=== PATIENT | female | born 1950 | race Caucasian/White ===

== ENCOUNTER 2016-10-01 11:06 | Inpatient (IN) | payer OTHER ==
[~2016-10-01 11:06] MED LIST: ALENDRONATE SOD70 MG PO; ASPIRIN CHEWABL81 MG PO; CERTAGEN1 EACH PO; FEOSOL325 MG PO; KLONOPIN0.5 MG PO; LEXAPRO 10MG TA10 MG PO; MYRBETRIQ50 MG PO; OMEPRAZOLE40 MG PO; SILVADENE20 G1 TOP; SINGULAIR10 MG PO; VICODIN 10/3251 EACH PO; VITAMIN B-121000 MC1 PO; VITAMIN D1000 UNI1 PO; VITAMIN E200 UNI1 PO; XARELTO10 MG PO
[2016-10-01 14:49] LABS: BILIRUBIN NEGATIVE (NEGATIVE); BLOOD TRACE-INTACT Ery/uL (NEGATIVE); CLARITY CLEAR (CLEAR); COLOR YELLOW (YELLOW); GLUCOSE (U) NORMAL (NORMAL); KETONE (U) NEGATIVE (NEGATIVE); LEUKOCYTES NEGATIVE Leu/uL (NEGATIVE); NITRITE NEGATIVE (NEGATIVE); PROTEIN NEGATIVE (NEGATIVE); SPECIFIC GRAVITY <=1.005 (1.001-1.030); UROBILINOGEN 0.2 mg/dL (0.2-1.0); pH 6.5 (5.0-9.0)
[2016-10-01 15:12] LABS: BASOPHIL 0.4 % (0-2); EOSINOPHIL 0.9 % (0-7); HCT 35.8 % (37.0-47.0); HGB 12.7 g/dl (12.5-16.0); LYMPHOCYTE 10.7 % (15-48); MCH 32.6 pg (25.0-31.0); MCHC 35.5 g/dL (32.0-36.0); MONOCYTE 8.3 % (0-12); MPV 7.5 fL (6.0-9.5); NEUTROPHIL 79.7 % (41-80); PLT 849 K/uL (150-400); RBC 3.89 M/uL (4.20-5.40); RDW 13.3 % (11.5-14.0); WBC 16.3 K/uL (4.0-10.5)
[2016-10-01 15:20] LABS: INR 0.91 (0.9-1.2); PROTHROMBIN TIME 11.9 SECONDS (11.7-14.0); PTT 32.6 SECONDS (23.2-31.4)
[2016-10-01 15:31] LABS: ALBUMIN 3.8 g/dL (3.4-4.8); BILIRUBIN - TOTAL 0.4 mg/dL (0.1-1.0); CREATININE 0.4 mg/dL (0.5-1.0); GLOBULIN (CALCULATION) 4.1 g/dL (2.2-4.2); TOTAL PROTEIN 7.9 g/dL (6.4-8.3)
[2016-10-02 17:01] LABS: CREATININE 0.4 mg/dL (0.5-1.0); POTASSIUM 3.9 mmol/L (3.5-5.1)
[2016-10-03 06:31] LABS: HCT 29.5 % (37.0-47.0); HGB 10.1 g/dl (12.5-16.0); MCH 32.5 pg (25.0-31.0); MCHC 34.2 g/dL (32.0-36.0); MCV 94.9 fL (78.0-100.0); MPV 7.4 fL (6.0-9.5); RBC 3.11 M/uL (4.20-5.40); RDW 13.7 % (11.5-14.0); WBC 14.2 K/uL (4.0-10.5)
[2016-10-03 06:53] LABS: CREATININE 0.3 mg/dL (0.5-1.0); POTASSIUM 3.6 mmol/L (3.5-5.1)
[2016-10-04 05:37] LABS: BASOPHIL 0.1 % (0-2); EOSINOPHIL 2.6 % (0-7); HCT 31.2 % (37.0-47.0); HGB 10.6 g/dl (12.5-16.0); MCH 32.5 pg (25.0-31.0); MCV 95.7 fL (78.0-100.0); MONOCYTE 8.1 % (0-12); MPV 7.3 fL (6.0-9.5); NEUTROPHIL 79.2 % (41-80); PLT 729 K/uL (150-400); RBC 3.26 M/uL (4.20-5.40); RDW 13.9 % (11.5-14.0)
[2016-10-04 05:39] LABS: WBC 15.4 K/uL (4.0-10.5)
[2016-10-04 05:59] LABS: CREATININE 0.3 mg/dL (0.5-1.0)
[2016-10-05 05:06] LABS: BASOPHIL 0.1 % (0-2); HCT 21.8 % (37.0-47.0); LYMPHOCYTE 9.7 % (15-48); MCH 32.3 pg (25.0-31.0); MCHC 33.5 g/dL (32.0-36.0); MCV 96.5 fL (78.0-100.0); MONOCYTE 8.3 % (0-12); MPV 7.8 fL (6.0-9.5); NEUTROPHIL 79.9 % (41-80); PLT 633 K/uL (150-400); RBC 2.26 M/uL (4.20-5.40); RDW 13.4 % (11.5-14.0); WBC 14.3 K/uL (4.0-10.5)
[2016-10-05 05:22] LABS: HGB 7.3 g/dl (12.5-16.0)
[2016-10-05 05:28] LABS: CREATININE 0.5 mg/dL (0.5-1.0); POTASSIUM 4.4 mmol/L (3.5-5.1)
[2016-10-05 18:26] LABS: HCT 26.8 % (37.0-47.0); MCHC 33.6 g/dL (32.0-36.0); MCV 95.4 fL (78.0-100.0); MPV 7.6 fL (6.0-9.5); RBC 2.81 M/uL (4.20-5.40); RDW 13.5 % (11.5-14.0); WBC 13.3 K/uL (4.0-10.5)
[2016-10-06 04:28] LABS: BASOPHIL 0.1 % (0-2); EOSINOPHIL 0.7 % (0-7); HCT 24.7 % (37.0-47.0); HGB 8.6 g/dl (12.5-16.0); LYMPHOCYTE 9.9 % (15-48); MCH 32.6 pg (25.0-31.0); MCHC 34.8 g/dL (32.0-36.0); MCV 93.6 fL (78.0-100.0); MPV 7.5 fL (6.0-9.5); NEUTROPHIL 76.3 % (41-80); PLT 614 K/uL (150-400); RBC 2.64 M/uL (4.20-5.40); RDW 13.5 % (11.5-14.0); WBC 13.6 K/uL (4.0-10.5)
[2016-10-06 04:51] LABS: CREATININE 0.4 mg/dL (0.5-1.0)
[2016-10-07 03:59] LABS: HCT 24.1 % (37.0-47.0); MCH 31.5 pg (25.0-31.0); MCHC 33.2 g/dL (32.0-36.0); MCV 94.9 fL (78.0-100.0); MPV 7.5 fL (6.0-9.5); RBC 2.54 M/uL (4.20-5.40); RDW 13.3 % (11.5-14.0); WBC 11.7 K/uL (4.0-10.5)
[2016-10-08 05:09] LABS: HCT 22.2 % (37.0-47.0); HGB 7.5 g/dl (12.5-16.0); MCH 32.2 pg (25.0-31.0); MCHC 33.8 g/dL (32.0-36.0); MCV 95.3 fL (78.0-100.0); MPV 7.7 fL (6.0-9.5); RBC 2.33 M/uL (4.20-5.40); RDW 13.2 % (11.5-14.0); WBC 11.1 K/uL (4.0-10.5)
[2016-10-09 05:47] LABS: BASOPHIL NO PRINT 0.2 % (0-2); EOSINOPHIL NO PRINT 1.6 % (0-7); HCT 26.5 % (37.0-47.0); LYMPHOCYTE NO PRINT 9.5 % (15-48); MCV NO PRINT 94.3 fL (78.0-100.0); MONOCYTE NO PRINT 15.6 % (0-12); MPV NO PRINT 7.8 fL (6.0-9.5); NEUTROPHIL NO PRINT 73.1 % (41-80); PLT NO PRINT 624 K/uL (150-400); RBC NO PRINT 2.81 M/uL (4.20-5.40); RDW NO PRINT 13.1 % (11.5-14.0); WBC NO PRINT 10.2 K/uL (4.0-10.5)
== END 2016-10-09 14:37 | disposition home health service (06) | DRG 470 ==
LOC: FER 11:06 → FMS 15:51
PROVIDERS: Internal Medicine; Internal Medicine Nephrology; Nurse Practitioner Family; ADMIT Internal Medicine
PROC: 0QP704Z Removal of Internal Fixation Device from Left Upper Femur, Open Approach (ICD-10-PCS; principal; 2016-10-01)
PROC: 0SRB01A Replacement of Left Hip Joint with Metal Synthetic Substitute, Uncemented, Open Approach (ICD-10-PCS; 2016-10-01)
PROC: 30233N1 Transfusion of Nonautologous Red Blood Cells into Peripheral Vein, Percutaneous Approach (ICD-10-PCS; 2016-10-05)
PROC: 30233N1 Transfusion of Nonautologous Red Blood Cells into Peripheral Vein, Percutaneous Approach (ICD-10-PCS; 2016-10-08)
DX: S72.142P Displaced intertrochanteric fracture of left femur, subsequent encounter for closed fracture with malunion (principal); E46 Unspecified protein-calorie malnutrition; T84.89XA Other specified complication of internal orthopedic prosthetic devices, implants and grafts, initial encounter; J44.9 Chronic obstructive pulmonary disease, unspecified; E87.1 Hypo-osmolality and hyponatremia; D62 Acute posthemorrhagic anemia; Z68.1 Body mass index [BMI] 19.9 or less, adult; L97.819 Non-pressure chronic ulcer of other part of right lower leg with unspecified severity; L03.115 Cellulitis of right lower limb; I83.018 Varicose veins of right lower extremity with ulcer other part of lower leg; M81.0 Age-related osteoporosis without current pathological fracture; M41.9 Scoliosis, unspecified; F32.9 Major depressive disorder, single episode, unspecified; I87.2 Venous insufficiency (chronic) (peripheral); F17.210 Nicotine dependence, cigarettes, uncomplicated; G89.29 Other chronic pain; Z79.899 Other long term (current) drug therapy; Z88.0 Allergy status to penicillin
CPT/HCPCS: 36415; 36430; 36600; 71010; 73501; 73502; 73700; 76000; 80048; 80053; 80202; 81003; 82803; 85014; 85018; 85025; 85610; 85730; 86850; 86900; 86901; 86922; 87040; 87070; 87077; 87186; 87205; 88305; 88311; 93005; 94010; 94640; 94668; 94760; 94762; 96372; 97110; 97116; 97163; 97166; 97530; 97530-GP; 97535; A6197; C1776; J0131; J1170; J1885; J1956; J2270; J2405; J2704; J2710; J2916; J3010; J3370; P9016